=== PATIENT | female | born 1945 | race Caucasian/White ===

== ENCOUNTER 2022-03-08 16:58 | Emergency (ER) | payer MEDICARE, SELFPAY ==
[2022-03-08] VITALS (12 sets, daily range): BP systolic 141–155; BP diastolic 66–78; PULSE 54–62; RESP 14–22; TEMP 36.7; O2SAT 97–100
--- NOTE | ~2022-03-08 | XR_ITS ---
EXAMINATION: XR tibia fibula LT 2V INDICATION: Left leg pain TECHNIQUE: Two views of the left tibia and fibula are obtained. COMPARISON: None available FINDINGS: Bone alignment is normal. There is no fracture. There is moderate osteoarthritis in the lat eral compartment of the knee. IMPRESSION: 1. No acute osseous abnormality. Reviewed, dictated and finalized at location F.
--- NOTE | ~2022-03-08 | CT_ITS ---
EXAMINATION: CT brain wo con INDICATION: Head injury COMPARISON: None TECHNIQUE: Standard unenhanced head CT. The dose-length product (DLP) was 605.33 mGy-cm. The mA was a djusted according to patient size. Iterative reconstruction technique was employed. FINDINGS: There is no acute intraparenchymal hemorrhage. No evidence of mass lesion. No evidence of a cute infarction. There is mild periventricular and subcortical hypodensity probably related to small vessel ischemic disease. There is mild prominence of the sulci and ventricles related to cerebral atr ophy. Intracranial calcified cerebral atherosclerosis is noted. There are no extra-axial collections. There is no mass effect or midline shift. Changes in the globes are likely from ocular lens surgery. There is partial opacification of the left maxillary sinus. There are changes of right mastoidectomy . IMPRESSION: 1. No acute intracranial abnormality. 2. Age related findings. Reviewed, dictated and finalized at location F.
--- NOTE | ~2022-03-08 | XR_ITS ---
EXAMINATION: XR hand LT min 3V INDICATION: Left hand TECHNIQUE: Three views of the left hand are obtained. COMPARISON: None available FINDINGS: There is no fracture, dislocation, or subluxation. There is mild osteoarthritis at the firs t carpometacarpal joint in multiple interphalangeal joints. The soft tissues are unremarkable. IMPRESSION: 1. Mild osteoarthritis without acute osseous abnormality. Reviewed, dictated and finalized at location F.
--- NOTE | ~2022-03-08 | CT_ITS ---
EXAMINATION: CT cervical spine wo con DATE: 03/08/2022 17:57 INDICATION: Head injury TECHNIQUE: Computed tomography (CT) of the cervical spine was performed without intravenous contrast. The dose-length product (DLP) was 102.86 mGy-cm. Automated exposure control and iterative reconstruc tion technique were employed. COMPARISON: None FINDINGS: There is 1 mm of anterolisthesis of C2 on C3. The vertebral body heights are normal. There is moderate loss of intervertebral disc space height at C5-6. The odontoid is intact. Small degenerat joe osteophytes project from the anterior endplates of multiple vertebral bodies. The prevertebral so ft tissues are normal. There is mild multilevel facet and uncovertebral joint osteoarthritis. Changes of right mastoidectomy are noted. IMPRESSION: 1. Mild cervical spondylosis without acute findings. Reviewed, dictated and finalized at location F.
--- NOTE | 2022-03-08 19:16 | PC.NURSE ---
191 Transferred of care to VALORIE Arriaga
--- NOTE | 2022-03-08 19:29 | ED.FALL ---
HPI - Fall General Chief Complaint: Fall Stated Complaint: fall on blood thinners Time Seen by Provider: 03/08/22 17:42 History of Present Illness HPI Narrative: Patient standing on the porch when a krista of wind blew her down and she fell onto the ground, she did bump her head, anterior her left hand and bruised her left box. She is endorsing some pain where these injuries are but denies any loss of consciousness or pain anywhere else Related Data Allergies Allergy/AdvReac Type Severity Reaction Status Date / Time acetaminophen [From [place]] AdvReac Gastrointestinal Verified 03/08/22 18:04 Upset hydrocodone [From [place]] AdvReac Gastrointestinal Verified 03/08/22 18:04 Upset Review of Systems Review of Systems: CONST: No fever. HEENT: Head injury C/V: No chest pain RESP: No cough GI: No abdominal pain : No dysuria. M/S: Left hand and box pain SKIN: Open wound to left hand, bruising to left box NEURO: [No headache or focal numbness or weakness] PSYCH: [No depression] Exam Narrative: EXAMINATION OF ORGAN SYSTEMS/BODY AREAS: Constitutional: Vital signs per nursing GENERAL:[No acute distress, non-toxic appearing.] HEAD: Tiny contusion left forehead EYES: EOMI, conjunctiva normal ENT: Hearing grossly intact LUNGS: Nonlabored breathing. HEART: [Regular rate and rhythm] ABD: [Soft], [nontender to palpation] EXT: Normal range of motion, some mild tenderness palpation to the left box and hand SKIN: Skin avulsion left dorsum hand, ecchymosis left lower anterior extremity NEURO: [Alert and oriented x 3. No gross focal sensory or strength deficits.] PSYCH: Normal affect Course Vital Signs Vital signs: Vital Signs Temperature 98.0 F 03/08/22 17:08 Pulse Rate 62 03/08/22 17:08 Respiratory Rate 14 03/08/22 17:08 Blood Pressure 146/77 H 03/08/22 17:08 Pulse Oximetry 100 03/08/22 17:08 Oxygen Delivery Room Air 03/08/22 17:08 Temperature 98.0 F 03/08/22 17:08 Pulse Rate 57 L 03/08/22 19:02 Respiratory Rate 19 03/08/22 19:02 Blood Pressure 148/71 H 03/08/22 19:02 Pulse Oximetry 98 03/08/22 19:02 Oxygen Delivery Room Air 03/08/22 17:57 MDM - Fall MDM Narrative Medical decision making narrative: 76-year-old female presenting after mechanical fall, vital signs stable, she does have a mild contusion to her left forehead and skin tears to her left hand, and bruising to her left lower extremity, she is otherwise very well-appearing and has no injuries or tenderness anywhere else, he is ambulating without issues, I have low concern for any sort of fracture given her well appearance but I will obtain scans to rule this out. They are negative, her wounds are cleaned and dressed, she is given return precautions and wound care instructions and stable for discharge at this time Discharge Plan Discharge Clinical Impression: Fall, Skin tear, Bruising Patient Disposition: Home, Self-Care Condition: Stable Instructions: Antibiotic Form, Contusion in Adults (ED), Skin Avulsion (ED) Additional Instructions: Please follow-up with your doctor in the next few days, you can return if you have any further issues. Try to keep the wound clean and change the dressing once or twice a day. Follow-up/Referrals: PHYSICIAN NOT ON STAFF,NONSTAFF [Primary Care Provider] -
== END 2022-03-08 20:00 | disposition home or self-care (01) ==
PROVIDERS: Emergency Provider Emergency Medicine
DX: S80.12XA Contusion of left lower leg, initial encounter (principal); S00.83XA Contusion of other part of head, initial encounter; S61.412A Laceration without foreign body of left hand, initial encounter; M18.9 Osteoarthritis of first carpometacarpal joint, unspecified; M19.042 Primary osteoarthritis, left hand; W18.39XA Other fall on same level, initial encounter
CPT/HCPCS: 70450; 72125; 73130; 73590; 99284